=== PATIENT | female | born 1980 | race Caucasian/White ===

== ENCOUNTER 2024-03-23 05:15 | Day surgery (SDC) | payer OTHER ==
[2024-03-21 08:44] LABS: HEMATOCRIT 40.2 % (36.0-45.00); HEMOGLOBIN 13.6 g/dL (12.0-15.00); MEAN CELL VOLUME 87.1 fL (80.00-100.00); MEAN CORPUSCULAR HEMOGLOBIN 29.4 pg (27.00-32.0); MEAN CORPUSCULAR HGB CONC 33.8 g/dl (32.0-36.0); PLATELET COUNT 301 K/uL (150-450); RED BLOOD COUNT 4.61 M/uL (4.00-6.00)
[2024-03-21 08:50] LABS: URINE APPEARANCE Clear; URINE BILIRRUBIN Negative (NEGATIVE); URINE BLOOD Negative; URINE COLOR Yellow; URINE GLUCOSE Negative (NEGATIVE); URINE KETONE Trace (NEGATIVE); URINE LEUKOCYTE Negative; URINE NITRATE Negative; URINE PROTEIN Negative (NEGATIVE)
[2024-03-21 08:53] LABS: URINE BACTERIA 1166.5 uL (0.0-1933); URINE EPITHELIAL CELLS 15.9 uL (0.0-38.8); URINE RBC 32.5 uL (0.0-20.8); URINE WBC 5.4 uL (0.0-23.2)
[2024-03-21 09:14] LABS: INR 1.05; PROTHROMBIN TIME 11.4 SECONDS (9.0-11.5)
[2024-03-21 09:19] LABS: ALBUMIN 3.9 gm/dL (3.4-5.0); BILIRUBIN TOTAL 0.9 mg/dL (0.3-1.2); CALCIUM 9.3 mg/dL (8.5-10.1); CREATININE SERUM 0.64 mg/dL (0.55-1.02); GFR 101.76; GLOBULINA 3.3 G/DL (2.4-3.5); POTASSIUM 4.22 mEq/L (3.5-5.1); TOTAL PROTEIN 7.2 gm/dL (6.4-8.2)
[2024-03-21 10:38] LABS: RH POSITIVE
[~2024-03-23 05:15] MED LIST: AVAPRO300 MG PO; HYDROCHLOROTHIA25 MG
[2024-03-23] MEDS ORDERED: METRONIDAZOLE/SODIUM CHLORIDE 5 MG/ML ML IV SCH (07:00)
[2024-03-23] MEDS ORDERED: METRONIDAZOLE/SODIUM CHLORIDE 500 MG/100 ML PIGGYBACK IV SCH (07:00)
[2024-03-23] MEDS ORDERED: CEFAZOLIN SODIUM 1,000 MG VIAL IV SCH (07:00)
[2024-03-23] MEDS ORDERED: POVIDONE-IODINE 118 ML BOTT TOP ONE (12:30)
[2024-03-23] MEDS ORDERED: HEMOSTATIC MATRIX 1 KIT KIT TOP ONE (13:30)
[2024-03-23] MEDS ORDERED: KETOROLAC TROMETHAMINE 30 MG VIAL IV STA (13:50)
[2024-03-23] MEDS ORDERED: MORPHINE SULFATE 4 MG/ML VIAL IV ONE (14:30)
[2024-03-23] MEDS ORDERED: LIDOCAINE HCL 2% 20ML VIAL IJ ONE (14:45)
[2024-03-23] MEDS ORDERED: SUGAMMADEX SODIUM 200 MG/2 ML VIAL IV ONE (14:45)
== END 2024-03-23 17:15 | disposition home or self-care (01) ==
LOC: CIR.AMB 05:15
PROVIDERS: ATTEND Obstetrics & Gynecology Gynecologic Oncology
DX: N83.292 Other ovarian cyst, left side (principal); N80.122 Deep endometriosis of left ovary; N73.6 Female pelvic peritoneal adhesions (postinfective); Z91.018 Allergy to other foods; I10 Essential (primary) hypertension; F41.9 Anxiety disorder, unspecified